=== PATIENT | female | born 1965 | race Caucasian/White ===

== ENCOUNTER 2021-11-07 12:09 | Observation (INO) | payer BC ==
[~2021-11-07] VITALS: Ht 172.7 cm; Wt 99.3 kg
[2021-11-07 13:26] LABS: HEMOGLOBIN 13.8 gm/dl (12.3-15.3); RED BLOOD COUNT 4.8 M/UL (4.00-5.10); WHITE BLOOD COUNT 11.5 K/UL (4.5-11.0)
[2021-11-07 13:48] LABS: BUN/CREATININE RATIO 24 (0-10)
[2021-11-07] MEDS ORDERED: CYCLOBENZAPRINE10 MG PO (18:14)
[2021-11-07] MEDS ORDERED: CELEBREX 100MG100 MG PO (18:14)
[2021-11-07] MEDS ORDERED: HYDROCODON-ACE1 EAC6 PO (18:15)
[2021-11-07] MEDS ORDERED: GABAPENTIN800 MG PO (18:15)
[2021-11-07] MEDS ORDERED: OMEPRAZOLE40 MG PO (18:16)
[2021-11-07] MEDS ORDERED: PHENTERMINE H37.5 M1 PO (18:16)
[2021-11-08] MEDS ORDERED: PERCOCET 10-321 EACH PO (09:06)
[2021-11-08] MEDS ORDERED: COLACE100 MG PO (09:06)
== END 2021-11-08 10:33 | disposition home or self-care (01) ==
LOC: ER1 12:09 → CDU 17:19 → CCU 17:19
PROVIDERS: Emergency Medicine; ADMIT Surgery
PROC: 0WUF4JZ Supplement Abdominal Wall with Synthetic Substitute, Percutaneous Endoscopic Approach (ICD-10-PCS; principal; 2021-11-07 17:42)
DX: K42.0 Umbilical hernia with obstruction, without gangrene (principal); K21.9 Gastro-esophageal reflux disease without esophagitis; K27.9 Peptic ulcer, site unspecified, unspecified as acute or chronic, without hemorrhage or perforation; M19.90 Unspecified osteoarthritis, unspecified site; Z79.899 Other long term (current) drug therapy
CPT/HCPCS: 80053; 81001; 83605; 83690; 84703; 85025; 96372; 96374; 96375; 96376; 99285; C1781; G0378; J0690; J1100; J1170; J1650; J1885; J2001; J2250; J2405; J2704; J2710; J3010; J7030; J7120; Q9967